=== PATIENT | male | born 1965 | race African-American/Black ===

== ENCOUNTER 2020-07-06 15:17 | Emergency (ER) | payer MEDICARE, MEDICAID ==
--- NOTE | 2020-07-06 15:39 | ER Document Report ---
ED Medical Screen (RME) - General Chief Complaint: ETOH Abuse Stated Complaint: ALCOHOL ABUSE Time Seen by Provider: 07/06/20 15:19 Primary Care Provider: DANNY PACK MD [Primary Care Provider] - Follow up as needed Notes: Patient was brought here by EMS who was called by law enforcement who found patient sitting in a parking lot. Patient had abrasion to the left cheek. Patient states that he fell hitting the pavement. Patient smells of alcohol. Patient denies any drug abuse. Patient does admit to taking acid reflux medication today. I have greeted and performed a rapid initial assessment of this patient. A comprehensive ED assessment and evaluation of the patient, analysis of test results and completion of the medical decision making process will be conducted by additional ED providers. TRAVEL OUTSIDE OF THE [place] IN LAST 30 DAYS: No - Related Data Allergies/Adverse Reactions: No Known Allergies Allergy (Unverified 03/19/12 01:08) Past Medical History - Past Medical History Cardiac Medical History: Reports: Hx Hypertension - Immunizations Hx Diphtheria, Pertussis, Tetanus Vaccination: Yes Physical Exam - Vital signs Vitals: Temp Pulse Resp BP Pulse Ox 98.2 F 69 18 103/86 H 99 07/06/20 15:31 07/06/20 15:31 07/06/20 15:31 07/06/20 15:31 07/06/20 15:31 - General General appearance: Alert Notes: Swelling with overlying abrasion to left cheek, no cervical midline tenderness step-off or deformity Course - Vital Signs Vital signs: Temp Pulse Resp BP Pulse Ox 98.2 F 69 18 103/86 H 99 07/06/20 15:31 07/06/20 15:31 07/06/20 15:31 07/06/20 15:31 07/06/20 15:31 Doctor's Discharge - Discharge Referrals: DANNY PACK MD [Primary Care Provider] - Follow up as needed
--- NOTE | 2020-07-06 16:22 | RADIOLOGY REPORT (SQ) ---
EXAM DESCRIPTION: CT CERVICAL SPINE WITHOUT IMAGES COMPLETED DATE/TIME: 07/06/2020 2:56 pm REASON FOR STUDY: fall, facial injury, +ETOH COMPARISON: X-ray cervical spine, 03/19/2012 TECHNIQUE: Axial images acquired through the cervical spine without intravenous contrast. Images re viewed with lung, soft tissue and bone windows. Reconstructed coronal and sagittal MPR images review ed. Images stored on PACS. All CT scanners at this facility use dose modulation, iterative reconstruction, and/or weight based d osing when appropriate to reduce radiation dose to as low as reasonably achievable (ALARA). [facility]: Dose Right [facility]: CareDose [facility]: Dose Right [facility]: Teradose 4D [facility]: [employer] RADIATION DOSE: CT Rad equipment meets quality standard of care and radiation dose reduction techniq ues were employed. CTDIvol: 10.3 - 19.3 mGy. DLP: 680 mGy-cm. mGy. LIMITATIONS: None. FINDINGS: ALIGNMENT: Anatomic. MINERALIZATION: Normal. VERTEBRAL BODIES: No fracture or cortical disruption. No loss of vertebral body height. Small madeline nal osteophytes at the endplates. No significant posterior projecting marginal osteophytes. DISCS: Degenerative disc disease with small disc bulge at C3-C4 in C5-C6. No significant spinal kim l stenosis. FACETS, LATERAL MASSES, POSTERIOR ELEMENTS: No fracture or dislocation. Mild facet arthropathy. No significant neural foraminal stenosis. HARDWARE: None in the spine. VISUALIZED RIBS: No fractures. LUNG APICES AND SOFT TISSUES: No significant or acute findings. OTHER: No other significant finding. IMPRESSION: No acute fracture or dislocation of the cervical spine. Mild degenerative disc disease and spondylosis with mild facet arthropathy. TECHNICAL DOCUMENTATION: JOB ID: [id number] Quality ID # [id number]: Final reports with documentation of one or more dose reduction techniques (e.g., Au tomated exposure control, adjustment of the mA and/or kV according to patient size, use of iterative reconstruction technique) 2010 [employer]- All Rights Reserved Reading location - IP/workstation name: [email or web address]
[2020-07-06 16:27] LABS: ABSOLUTE EOSINOPHILS # (AUTO) 0.1 10^3/uL (0.0-0.6); ABSOLUTE LYMPHOCYTES (AUTO) 1.3 10^3/uL (0.5-4.7); ABSOLUTE MONOCYTES (AUTO) 0.5 10^3/uL (0.1-1.4); ABSOLUTE NEUT (AUTO) 3.3 10^3/uL (1.7-8.2); BASOPHILS % (AUTO) 0.6 % (0-2); EOSINOPHILS % (AUTO) 1.7 % (0-6); HEMATOCRIT 38.2 % (37.9-51.0); LYMPHOCYTES % (AUTO) 25.1 % (13-45); MEAN CORPUSCULAR HEMOGLOBIN 29.3 pg (27.0-33.4); MEAN CORPUSCULAR HGB CONC 34.1 g/dL (32.0-36.0); MEAN CORPUSCULAR VOLUME 86 fl (80-97); MONOCYTES % (AUTO) 9.1 % (3-13); PLATELET COUNT 283 10^3/uL (150-450); RED BLOOD COUNT 4.45 10^6/uL (4.35-5.55); RED CELL DISTRIBUTION WIDTH 16.7 % (11.5-14.0); SEGMENTED NEUTROPHILS % (AUTO) 63.5 % (42-78); TOTAL CELLS COUNTED % (AUTO) 100 %; WHITE BLOOD COUNT 5.3 10^3/uL (4.0-10.5)
--- NOTE | 2020-07-06 16:27 | RADIOLOGY REPORT (SQ) ---
EXAM DESCRIPTION: CT HEAD WITHOUT IMAGES COMPLETED DATE/TIME: 07/06/2020 2:56 pm REASON FOR STUDY: fall, facial injury, +ETOH. COMPARISON: CT facial bones, 03/19/2012. CT head 03/19/2012. TECHNIQUE: Axial images acquired through the brain without intravenous contrast. Images reviewed wi th bone, brain and subdural windows. Additional sagittal and coronal reconstructions were generated. Images stored on PACS. All CT scanners at this facility use dose modulation, iterative reconstruction, and/or weight based d osing when appropriate to reduce radiation dose to as low as reasonably achievable (ALARA). [facility]: Dose Right [facility]: CareDose [facility]: Dose Right [facility]: Teradose 4D [facility]: [employer] RADIATION DOSE: CT Rad equipment meets quality standard of care and radiation dose reduction techniq ues were employed. CTDIvol: 53.2 mGy. DLP: 1017 mGy-cm. mGy. LIMITATIONS: None. FINDINGS: VENTRICLES: Normal size and contour. CEREBRUM: Interval development of ill-defined hypodense attenuation at the right temporal lobe infer iorly, with suggestion of chronic encephalomalacia, age indeterminate infarct, more likely subacute t o chronic. Acute on chronic ischemia is not entirely excluded. 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 Focal hypodense attenuation in the left thalamus also new from prior exam, probably chronic lacunar infarct. No masses. No hemorrhage. No midline shift. No evidence for acute infarction. Otherwise normal garcía-white matter differentiation. There is intracr anial atherosclerosis. CEREBELLUM: No masses. No hemorrhage. No alteration of density. No evidence for acute infarction. EXTRAAXIAL SPACES: No fluid collections. No masses. ORBITS AND GLOBE: Chronic atrophy of the right globe. The left globe has normal contour and appearan ce. No intraconal mass or fluid. No inflammatory change. CALVARIUM: No fracture. PARANASAL SINUSES: Mucosal thickening in the anterior right maxillary sinus. No air-fluid levels. R emaining paranasal sinuses are clear. SOFT TISSUES: No mass or hematoma. OTHER: No other significant finding. IMPRESSION: 1. Since the previous examination performed 03/19/2012, there is been interval development of areas of hypodense attenuation in the right temporal lobe, left mesial parietal lobe, and left thalamus, havin g the appearance of chronic infarcts. Cannot entirely exclude a subacute infarct or acute on chronic infarct in the right temporal lobe. Clinical correlation is recommended. If there is clinical conc mariluz for acute ischemia, MRI is recommended. 2. No acute intracranial hemorrhage, mass or mass effect. 3. There is intracranial atherosclerosis. 4. Chronic atrophy of the right eye. EVIDENCE OF ACUTE STROKE: NO. COMMENT: Quality ID # [id number]: Final reports with documentation of one or more dose reduction techniques (e.g., Automated exposure control, adjustment of the mA and/or kV according to patient size, use of iterative reconstruction technique) TECHNICAL DOCUMENTATION: JOB ID: [id number] 2010 [employer]- All Rights Reserved Reading location - IP/workstation name: [email or web address]
--- NOTE | 2020-07-06 16:30 | RADIOLOGY REPORT (SQ) ---
EXAM DESCRIPTION: CT FACIAL AREA WITHOUT IMAGES COMPLETED DATE/TIME: 07/06/2020 2:56 pm REASON FOR STUDY: fall, facial injury, +ETOH. COMPARISON: CT facial bones 03/19/2012. TECHNIQUE: Noncontrasted images through the facial bones and orbits windowed for bone and soft tissu e. Additional coronal and sagittal reconstructed images reviewed. All images stored on PACS. All CT scanners at this facility use dose modulation, iterative reconstruction, and/or weight based d osing when appropriate to reduce radiation dose to as low as reasonably achievable (ALARA). [facility]: Dose Right [facility]: CareDose [facility]: Dose Right [facility]: Teradose 4D [facility]: [employer] RADIATION DOSE: CT Rad equipment meets quality standard of care and radiation dose reduction techniq ues were employed. CTDIvol: 30.4 mGy. DLP: 585 mGy-cm. mGy. LIMITATIONS: None. FINDINGS: FACIAL BONES: No fracture or bone lesion. ORBITS: Chronic atrophy of the right globe. No orbital fracture. Left globe has normal appearance. No intraconal mass or fluid. PARANASAL SINUSES: Mucosal thickening anterior and inferior right maxillary sinus. No air-fluid leve ls. Remaining paranasal sinuses are clear. No nasal polyps. Maxillary sinus outlets are patent. SOFT TISSUES: No mass or edema. INFERIOR BRAIN: Limited view. No acute findings. OTHER: No other significant finding. IMPRESSION: No acute facial bone fracture. Chronic atrophy of the right eye. TECHNICAL DOCUMENTATION: JOB ID: [id number] Quality ID # [id number]: Final reports with documentation of one or more dose reduction techniques (e.g., Au tomated exposure control, adjustment of the mA and/or kV according to patient size, use of iterative reconstruction technique) 2010 [employer]- All Rights Reserved Reading location - IP/workstation name: [id number]
[2020-07-06 16:45] LABS: ALBUMIN 4.2 g/dL (3.5-5.0); ALCOHOL 248 mg/dL (NONE DETECTED); ALKALINE PHOSPHATASE 99 U/L (38-126); ANION GAP 10 (5-19); ASPARTATE AMINO TRANSFERASE 26 U/L (17-59); BILIRUBIN,DIRECT 0.1 mg/dL (0.0-0.4); BILIRUBIN,TOTAL 0.2 mg/dL (0.2-1.3); BLOOD UREA NITROGEN 10 mg/dL (7-20); CALCIUM 10.2 mg/dL (8.4-10.2); CARBON DIOXIDE 24 mmol/L (22-30); CHLORIDE 109 mmol/L (98-107); GLUCOSE 78 mg/dL (75-110); POTASSIUM 3.8 mmol/L (3.6-5.0)
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
[2020-07-07 08:45] VITALS: BP 147/83
== END 2020-07-07 09:35 | disposition home or self-care (01) ==
LOC: ER 15:17
DX: F10.920 Alcohol use, unspecified with intoxication, uncomplicated (principal); R22.0 Localized swelling, mass and lump, head; S00.81XA Abrasion of other part of head, initial encounter; W18.39XA Other fall on same level, initial encounter; Y92.512 Supermarket, store or market as the place of occurrence of the external cause; F17.210 Nicotine dependence, cigarettes, uncomplicated
CPT/HCPCS: 36415; 70450; 70486; 72125; 80053; 80307; 85025; 99284